=== PATIENT | male | born 1960 | race Caucasian/White ===

== ENCOUNTER 2016-05-29 01:00 | Emergency (ER) | payer OTHER ==
--- NOTE | 2016-05-29 01:26 | ED ---
Xavier Gomez Aidan, scribed for Dat Dooley MD on 05/29/16 at 0118 . Complex/Multi-Sys Presentation - HPI Summary HPI Summary: 55 y/o male presents to the ED with a complaint of acute, constant, moderate, worsening, left-sided chest pain and lower abdominal pain that began roughly a week ago. 6 months ago, he had a similar pain when he had low sodium levels. No associated symptoms or factors. 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 Feedback Onset/Duration: Sudden Onset, Lasting Days, Still Present Timing: Constant, Days Severity Currently: Moderate Severity Initially: Moderate Location: Pain At: - lower abdomen and left side of chest Character: Sharp Aggravating Factor(s): unknown Alleviating Factor(s): unknown Associated Signs And Symptoms: Positive: Chest Pain, Abdominal Pain Related History: Similar Episode/Diagnosed As: - similar pain 6 months ago dx as low sodium levels - Allergies/Home Medications Allergies/Adverse Reactions: Allergies Allergy/AdvReac Type Severity Reaction Status Date / Time Aspirin Allergy Unknown Verified 05/29/16 01:18 Reaction Details Penicillins [PCN] Allergy Unknown Verified 05/29/16 01:19 Reaction Details PMH/Surg Hx/FS Hx/Imm Hx Endocrine/Hematology History: Denies: Hx Diabetes Cardiovascular History: Reports: Hx Hypertension - W/MEDS History: Denies: Hx Renal Disease - Immunization History Date of Tetanus Vaccine: Unk Date of Influenza Vaccine: Fall 2014 - Family History Known Family History: Positive: Hypertension - Social History Occupation: Unemployed Lives: Alone Alcohol Use: Daily - see HPI Alcohol Amount: 1/2 to 3/4 case of beer daily Substance Use Type: Reports: None Hx Tobacco Use: Yes Smoking Status (MU): Current Every Day Smoker Type: Cigarettes Have You Smoked in the Last Year: Yes Review of Systems Constitutional: Negative Eyes: Negative ENT: Negative Positive: Chest Pain. Negative: Palpitations Respiratory: Negative Positive: Abdominal Pain. Negative: Vomiting, Diarrhea, Nausea Genitourinary: Negative Musculoskeletal: Negative Skin: Negative Neurological: Negative Psychological: Normal All Other Systems Reviewed And Are Negative: Yes Physical Exam Triage Information Reviewed: Yes Vital Signs On Initial Exam: Initial Vitals Temp Pulse Resp BP Pulse Ox 98.1 F 97 16 158/81 98 05/29/16 01:00 05/29/16 01:00 05/29/16 01:00 05/29/16 01:00 05/29/16 01:00 Vital Signs Reviewed: Yes Appearance: Positive: No Pain Distress, Obese Skin: Positive: Warm Head/Face: Positive: Normal Head/Face Inspection Eyes: Positive: SIDNEY ENT: Positive: Hearing grossly normal Neck: Positive: Supple Respiratory/Lung Sounds: Positive: Clear to Auscultation, Breath Sounds Present Cardiovascular: Positive: RRR Abdomen Description: Positive: Nontender, Soft Bowel Sounds: Positive: Present Musculoskeletal: Positive: Strength/ROM Intact Neurological: Positive: Sensory/Motor Intact Psychiatric: Positive: Affect/Mood Appropriate Diagnostics - Vital Signs Vital Signs Temp Pulse Resp BP Pulse Ox 05/29/16 01:10 98 99 05/29/16 01:08 141/85 05/29/16 01:00 98.1 F 97 16 158/81 98 - Laboratory Result Diagrams: 05/29/16 01:40 05/29/16 05:15 Lab Statement: Any lab studies that have been ordered have been reviewed, and results considered in the medical decision making process. - EKG EKG 0101 Cardiac Rate: NL - 97 BPM EKG Rhythm: Sinus Rhythm EKG Interpretation: NORMAL Re-Evaluation - Re-Evaluation First Eval Change: Improved Complex Multi-Symp Course/Dx - Diagnoses Provider Diagnoses: Hyponatremia, Chest pain Discharge - Discharge Plan Condition: Stable Disposition: HOME Discharge Disposition Comment: Please follow up with your primary care physician. Patient Education Materials: Hyponatremia (ED), Chest Pain (ED) Referrals: Isaac Richardson MD [Primary Care Provider] - The documentation as recorded by the Xavier weston Aidan accurately reflects the service I personally performed and the decisions made by me, Dat Dooley MD.
[2016-05-29 01:53] LABS: Hematocrit 49 % (42-52); Hemoglobin 16.5 g/dl (14.0-18.0); Mean Corpuscular HGB Conc 34 g/dl (31-36); Mean Corpuscular Hemoglobin 33 pg (27-31); Mean Corpuscular Volume 99 fL (80-94); Mean Platelet Volume 8 um3 (7.4-10.4); Red Blood Count 4.97 10^6/ul (4.0-5.4); Red Cell Distribution Width 14 % (10.5-15)
[2016-05-29 02:06] LABS: Albumin 4.2 g/dL (3.2-5.2); BUN/Creatinine Ratio 5.6 (8-20); C Reactive Protein 2.27 mg/L (< 5.00); EGFR African American 148.1 (>60); EGFR Non-African American 115.2 (>60); Globulin 3.2 g/dL (2-4); Magnesium 1.9 mg/dL (1.9-2.7); Total Bilirubin 0.5 mg/dL (0.2-1.0); Total Protein 7.4 g/dL (6.4-8.9)
[2016-05-29 02:07] LABS: Troponin I 0.01 ng/mL (<0.04)
[2016-05-29 02:09] LABS: Potassium 3.7 mmol/L (3.5-5.0)
[2016-05-29] MEDS ORDERED: NS 0.9% 1000 ML* 1,000 ML IV ONE (02:46)
[2016-05-29 06:04] VITALS: BP 132/69
[2016-05-29 06:13] LABS: Troponin I 0.01 ng/mL (<0.04)
[2016-05-29 06:16] LABS: BUN/Creatinine Ratio 6.8 (8-20); Calcium 8.7 mg/dL (8.6-10.3); EGFR African American 143.5 (>60); EGFR Non-African American 111.6 (>60); Potassium 4.5 mmol/L (3.5-5.0)
--- NOTE | 2016-05-29 08:06 | RAD ---
HISTORY: Chest pain COMPARISONS: June 03, 2015 VIEWS: 2: Frontal and lateral views of the chest. FINDINGS: CARDIOMEDIASTINAL SILHOUETTE: The cardiomediastinal silhouette is normal. JACK: The jack are normal. PLEURA: The costophrenic angles are sharp. No pleural abnormalities are noted. LUNG PARENCHYMA: The lungs are clear. ABDOMEN: The upper abdomen is clear. There is no subphrenic gas. BONES AND SOFT TISSUES: No bone or soft tissue abnormalities are noted. OTHER: None. IMPRESSION: NO ACTIVE CARDIOPULMONARY DISEASE.
== END 2016-05-29 06:30 | disposition home or self-care (01) ==
LOC: ED 01:00
DX: E87.1 Hypo-osmolality and hyponatremia (principal); R07.9 Chest pain, unspecified; F17.210 Nicotine dependence, cigarettes, uncomplicated; R10.32 Left lower quadrant pain
CPT/HCPCS: 36415; 71020; 80048; 80053; 83605; 83690; 83735; 84484; 85025; 86140; 93005; 99283

== ENCOUNTER 2019-10-05 14:14 | Inpatient (IN) ==
[2019-10-05] MEDS ORDERED: Thiamine 100 MG/ML 2 ml VIAL 100 MG, Folic Acid 1 MG, Multiple Vitamin IV ADULT 10 ML i... IV ONE (16:03)
[2019-10-05 16:49] LABS: Hematocrit 39 % (42-52); Hemoglobin 13.7 g/dL (14.0-18.0); Mean Corpuscular HGB Conc 35 g/dL (31-36); Mean Corpuscular Hemoglobin 35 pg (27-31); Mean Corpuscular Volume 99 fL (80-94); Red Blood Count 3.96 10^6 /uL (4.18-5.48); Red Cell Distribution Width 13 % (10-15); White Blood Count 6.6 10^3/uL (3.5-10.8)
[2019-10-05 16:59] LABS: Troponin I 0.01 ng/mL (<0.03)
[2019-10-05 17:07] LABS: Albumin 4.3 g/dL (3.2-5.2); CO2 Carbon Dioxide 22 mmol/L (22-32); Calcium 9.6 mg/dL (8.6-10.3); Chloride 75 mmol/L (101-111); Potassium 4.7 mmol/L (3.5-5.0)
[2019-10-05 17:13] LABS: ALT 23 U/L (7-52); AST 38 U/L (13-39); Albumin/Globulin Ratio 1.2 (1-3); Alkaline Phosphatase 68 U/L (34-104); Blood Urea Nitrogen 11 mg/dL (6-24); EGFR African American 102.2 (>60); EGFR Non-African American 84.5 (>60); Globulin 3.7 g/dL (2-4); Glucose 101 mg/dL (70-100)
[2019-10-05 17:25] LABS: ABS Lymphocytes 0.6 10^3/ul (1.0-4.8); ABS Monocytes 0.5 10^3/ul (0-0.8); Eosinophil % 0.6 %; Lymphocyte % 8.5 %; Platelet Count Platelets clumped. 10^3/uL (150-450)
[2019-10-05 17:26] LABS: Anion Gap 11 mmol/L (2-11); Sodium 108 mmol/L (135-145)
[2019-10-05 18:14] LABS: Alcohol, S < 10 mg/dL (<10)
[2019-10-05] MEDS ORDERED: Albuterol 2.5mg/3 ml (0.083%) NEB.SOLN INH PRN (18:30)
[2019-10-05] MEDS ORDERED: LORazepam 2 mg VIAL 1 ml IV PUSH SCH (19:00)
[2019-10-05] MEDS: Enoxaparin 40 MG/0.4 ML SYR(*) SUBCUT SCH (21:22)
[2019-10-06 05:16] LABS: Hematocrit 37 % (42-52); Hemoglobin 13.3 g/dL (14.0-18.0); Mean Corpuscular HGB Conc 36 g/dL (31-36); Mean Corpuscular Hemoglobin 35 pg (27-31); Mean Corpuscular Volume 98 fL (80-94); Mean Platelet Volume 7.4 fL (7.4-10.4); Platelet Count 310 10^3/uL (150-450); Red Blood Count 3.83 10^6 /uL (4.18-5.48); Red Cell Distribution Width 13 % (10-15); White Blood Count 5.1 10^3/uL (3.5-10.8)
[2019-10-06 05:32] LABS: BUN/Creatinine Ratio 11.1 (8-20); Calcium 9.4 mg/dL (8.6-10.3); EGFR African American 135.7 (>60); EGFR Non-African American 112.1 (>60); Potassium 3.7 mmol/L (3.5-5.0)
[2019-10-06 05:36] LABS: INR 1.04 (0.82-1.09)
[2019-10-06] MEDS: LORazepam 1 mg TAB (*) PO PRN (06:04)
[2019-10-06] MEDS: Nicotine PATCH 21 MG/24 HR PATCH TRANSDERM SCH (08:11)
[2019-10-06] MEDS: Multivitamins/Minerals TAB PO SCH (08:12)
[2019-10-06] MEDS: SPIRIVA Respimat (tiotropium) 2.5 mcg/inh Inhaler INH SCH (11:01)
[2019-10-06] MEDS ORDERED: Ondansetron 4 mg VIAL 2 MG/ML 2 ml VIAL ONE (13:12)
[2019-10-06] MEDS ORDERED: Ondansetron 4 mg VIAL 2 MG/ML 2 ml VIAL IV ONE (13:26)
[2019-10-06] MEDS: Enoxaparin 40 MG/0.4 ML SYR(*) SUBCUT SCH (20:14)
[2019-10-07 05:20] LABS: Hematocrit 37 % (42-52); Hemoglobin 13.5 g/dL (14.0-18.0); Mean Corpuscular HGB Conc 36 g/dL (31-36); Mean Corpuscular Hemoglobin 36 pg (27-31); Mean Corpuscular Volume 98 fL (80-94); Mean Platelet Volume 7.1 fL (7.4-10.4); Platelet Count 336 10^3/uL (150-450); Red Blood Count 3.81 10^6 /uL (4.18-5.48); Red Cell Distribution Width 13 % (10-15); White Blood Count 5.8 10^3/uL (3.5-10.8)
[2019-10-07 05:31] LABS: BUN/Creatinine Ratio 13.8 (8-20); Calcium 9.7 mg/dL (8.6-10.3); EGFR African American 84.1 (>60); EGFR Non-African American 69.5 (>60); Potassium 3.8 mmol/L (3.5-5.0)
[2019-10-07] MEDS: LORazepam 1 mg TAB (*) PO PRN ×2 (05:52→21:10)
[2019-10-07] MEDS ORDERED: Ondansetron 4 mg VIAL 2 MG/ML 2 ml VIAL IV ONE (09:04)
[2019-10-07] MEDS: Multivitamins/Minerals TAB PO SCH (10:41)
[2019-10-07] MEDS: Nicotine PATCH 21 MG/24 HR PATCH TRANSDERM SCH (10:45)
[2019-10-07] MEDS: SPIRIVA Respimat (tiotropium) 2.5 mcg/inh Inhaler INH SCH (17:43)
[2019-10-07] MEDS: Enoxaparin 40 MG/0.4 ML SYR(*) SUBCUT SCH (21:07)
[2019-10-07] MEDS ORDERED: Ondansetron 4 mg VIAL 2 MG/ML 2 ml VIAL IV PRN (22:44)
[2019-10-08 05:11] LABS: ABS Basophils 0.1 10^3/ul (0-0.2); ABS Eosinophils 0.1 10^3/ul (0-0.6); ABS Lymphocytes 1.5 10^3/ul (1.0-4.8); ABS Monocytes 0.7 10^3/ul (0-0.8); Eosinophil % 1.6 %; Hematocrit 35 % (42-52); Hemoglobin 12.3 g/dL (14.0-18.0); Lymphocyte % 22.6 %; Mean Corpuscular HGB Conc 35 g/dL (31-36); Mean Corpuscular Hemoglobin 35 pg (27-31); Mean Corpuscular Volume 99 fL (80-94); Mean Platelet Volume 7.1 fL (7.4-10.4); Nucleated Red Blood Cells % 0.1; Platelet Count 328 10^3/uL (150-450); Red Blood Count 3.55 10^6 /uL (4.18-5.48); Red Cell Distribution Width 13 % (10-15); White Blood Count 6.7 10^3/uL (3.5-10.8)
[2019-10-08 05:26] LABS: BUN/Creatinine Ratio 21.3 (8-20); Calcium 9.3 mg/dL (8.6-10.3); EGFR African American 99.7 (>60); EGFR Non-African American 82.4 (>60); Potassium 4.1 mmol/L (3.5-5.0)
[2019-10-08] MEDS: Multivitamins/Minerals TAB PO SCH (07:35)
[2019-10-08] MEDS: Nicotine PATCH 21 MG/24 HR PATCH TRANSDERM SCH (07:35)
[2019-10-08] MEDS: SPIRIVA Respimat (tiotropium) 2.5 mcg/inh Inhaler INH SCH (10:11)
[2019-10-08] MEDS: Enoxaparin 40 MG/0.4 ML SYR(*) SUBCUT SCH (19:16)
[2019-10-08 19:37] LABS: TSH (Thyroid Stimulating Horm) 3.42 mcIU/mL (0.34-5.60)
[2019-10-08] MEDS: LORazepam 1 mg TAB (*) PO PRN (21:06)
[2019-10-09 06:05] LABS: ABS Basophils 0.1 10^3/ul (0-0.2); ABS Eosinophils 0.2 10^3/ul (0-0.6); ABS Lymphocytes 1.4 10^3/ul (1.0-4.8); ABS Monocytes 0.7 10^3/ul (0-0.8); Eosinophil % 2.3 %; Hematocrit 35 % (42-52); Hemoglobin 12.4 g/dL (14.0-18.0); Lymphocyte % 20.4 %; Mean Corpuscular HGB Conc 35 g/dL (31-36); Mean Corpuscular Hemoglobin 35 pg (27-31); Mean Corpuscular Volume 98 fL (80-94); Mean Platelet Volume 6.8 fL (7.4-10.4); Platelet Count 328 10^3/uL (150-450); Red Blood Count 3.57 10^6 /uL (4.18-5.48); Red Cell Distribution Width 13 % (10-15); White Blood Count 6.9 10^3/uL (3.5-10.8)
[2019-10-09 06:33] LABS: Calcium 9.2 mg/dL (8.6-10.3); Magnesium 1.8 mg/dL (1.9-2.7); Potassium 4.5 mmol/L (3.5-5.0)
[2019-10-09 06:39] LABS: BUN/Creatinine Ratio 18.2 (8-20); EGFR African American 107.6 (>60); EGFR Non-African American 88.9 (>60)
[2019-10-09] MEDS: Multivitamins/Minerals TAB PO SCH (07:20)
[2019-10-09] MEDS: Nicotine PATCH 21 MG/24 HR PATCH TRANSDERM SCH (07:21)
[2019-10-09] MEDS ORDERED: Magnesium Sulfate 2 gm BAG 2 GM/50 ML BAG IVPB ONE (08:42)
[2019-10-09 09:58] LABS: Folate 12.95 ng/mL (>3.99)
[2019-10-09] MEDS: SPIRIVA Respimat (tiotropium) 2.5 mcg/inh Inhaler INH SCH (10:52)
[2019-10-09 11:31] VITALS: BP 137/80
[2019-10-09] MEDS ORDERED: SPIRIVA Respimat (tiotropium) 2.5 mcg/inh Inhaler INH SCH (12:26)
== END 2019-10-09 12:55 | disposition home or self-care (01) | DRG 425 ==
LOC: ED 14:14 → ICU 18:18 → MEDTELE 10-06 14:04
PROVIDERS: ADMIT Internal Medicine Critical Care Medicine; ATTEND Internal Medicine

== ENCOUNTER 2019-10-13 15:36 | Inpatient (IN) ==
[2019-10-13] MEDS ORDERED: NS 0.9% 1000 ml BAG 1,000 ML IV ONE ×2 (16:02→22:15)
[2019-10-13 17:05] LABS: ABS Lymphocytes 0.9 10^3/ul (1.0-4.8); ABS Monocytes 1.5 10^3/ul (0-0.8); Eosinophil % 0.3 %; Hematocrit 37 % (42-52); Hemoglobin 12.9 g/dL (14.0-18.0); Lymphocyte % 5.9 %; Mean Corpuscular HGB Conc 35 g/dL (31-36); Mean Corpuscular Hemoglobin 34 pg (27-31); Mean Corpuscular Volume 98 fL (80-94); Mean Platelet Volume 6.8 fL (7.4-10.4); Platelet Count 339 10^3/uL (150-450); Red Blood Count 3.78 10^6 /uL (4.18-5.48); Red Cell Distribution Width 13 % (10-15); White Blood Count 15.2 10^3/uL (3.5-10.8)
[2019-10-13 17:21] LABS: ALT 26 U/L (7-52); AST 24 U/L (13-39); Albumin 4.1 g/dL (3.2-5.2); Albumin/Globulin Ratio 1.1 (1-3); Alkaline Phosphatase 78 U/L (34-104); Blood Urea Nitrogen 12 mg/dL (6-24); CO2 Carbon Dioxide 22 mmol/L (22-32); Calcium 9.2 mg/dL (8.6-10.3); Chloride 83 mmol/L (101-111); EGFR African American 120.1 (>60); EGFR Non-African American 99.3 (>60); Globulin 3.6 g/dL (2-4); Glucose 115 mg/dL (70-100); Magnesium 1.8 mg/dL (1.9-2.7); Phosphorus 3.6 mg/dL (2.5-5.0); Potassium 4.5 mmol/L (3.5-5.0); Total Protein 7.7 g/dL (6.4-8.9)
[2019-10-13 17:23] LABS: Anion Gap 9 mmol/L (2-11); Sodium 114 mmol/L (135-145)
[2019-10-13 17:46] LABS: Alcohol, S < 10 mg/dL (<10)
[2019-10-13 18:12] LABS: Troponin I 0.01 ng/mL (<0.03)
[2019-10-13] MEDS ORDERED: Albuterol/Ipratropium NEB.SOL (2.5/0.5 MG) 3 ML NEB.SOLN INH PRN (18:24)
[2019-10-13 18:29] LABS: Urine Appearance Cloudy; Urine Bilirubin Negative (Negative); Urine Blood Negative (Negative); Urine Color Amber; Urine Glucose 1+(50 mg/dL) (Negative); Urine Ketones Negative (Negative); Urine Nitrite Negative (Negative); Urine Protein 1+(30 mg/dL) (Negative); Urine Specific Gravity 1.024 (1.010-1.030); Urine Urobilinogen Positive (Negative)
[2019-10-13] MEDS ORDERED: HYDROcodone/ACETAMIN 5/325 mg TAB PO PRN (18:33)
[2019-10-13 18:47] LABS: Urine Bacteria Absent (Absent); Urine Red Blood Cell 1+(3-5/hpf) (Absent); Urine Squamous Epithelial Cell Present (Absent); Urine White Blood Cell Trace(0-5/hpf) (Absent)
[2019-10-13] MEDS ORDERED: Magnesium Sulfate 2 gm BAG 2 GM/50 ML BAG IVPB ONE (18:48)
[2019-10-13] MEDS: Nicotine PATCH 21 MG/24 HR PATCH TRANSDERM SCH (19:00)
[2019-10-13] MEDS ORDERED: Thiamine 100 MG/ML 2 ml VIAL (200 mg) IM ONE (19:09)
[2019-10-13] MEDS: Enoxaparin 40 MG/0.4 ML SYR(*) SUBCUT SCH (22:08)
[2019-10-14 04:44] LABS: ABS Basophils 0.1 10^3/ul (0-0.2); Eosinophil % 0.4 %; Hematocrit 35 % (42-52); Hemoglobin 12.5 g/dL (14.0-18.0); Lymphocyte % 11.1 %; Mean Corpuscular HGB Conc 36 g/dL (31-36); Mean Corpuscular Hemoglobin 35 pg (27-31); Mean Corpuscular Volume 98 fL (80-94); Mean Platelet Volume 6.7 fL (7.4-10.4); Platelet Count 299 10^3/uL (150-450); Red Blood Count 3.62 10^6 /uL (4.18-5.48); Red Cell Distribution Width 13 % (10-15); White Blood Count 9.4 10^3/uL (3.5-10.8)
[2019-10-14 04:59] LABS: Calcium 8.8 mg/dL (8.6-10.3); EGFR African American 142.5 (>60); EGFR Non-African American 117.8 (>60); Magnesium 2.3 mg/dL (1.9-2.7); Potassium 4.4 mmol/L (3.5-5.0)
[2019-10-14] MEDS: SPIRIVA Respimat (tiotropium) 2.5 mcg/inh Inhaler INH SCH (07:59)
[2019-10-14] MEDS: Multivitamins/Minerals TAB PO SCH (08:45)
[2019-10-14] MEDS: Nicotine PATCH 21 MG/24 HR PATCH TRANSDERM SCH (08:45)
[2019-10-14] MEDS: Enoxaparin 40 MG/0.4 ML SYR(*) SUBCUT SCH (20:03)
[2019-10-15 06:12] LABS: BUN/Creatinine Ratio 14.6 (8-20); EGFR African American 116.8 (>60); EGFR Non-African American 96.5 (>60); Magnesium 2.1 mg/dL (1.9-2.7); Potassium 4.3 mmol/L (3.5-5.0)
[2019-10-15] MEDS: Nicotine PATCH 21 MG/24 HR PATCH TRANSDERM SCH (08:09)
[2019-10-15] MEDS: Multivitamins/Minerals TAB PO SCH (08:09)
[2019-10-15] MEDS: SPIRIVA Respimat (tiotropium) 2.5 mcg/inh Inhaler INH SCH (08:19)
[2019-10-15] MEDS: Enoxaparin 40 MG/0.4 ML SYR(*) SUBCUT SCH (18:29)
[2019-10-15] MEDS: LORazepam 1 mg TAB (*) PO SCH (23:46)
[2019-10-16] MEDS: SPIRIVA Respimat (tiotropium) 2.5 mcg/inh Inhaler INH SCH (08:08)
[2019-10-16] MEDS: Nicotine PATCH 21 MG/24 HR PATCH TRANSDERM SCH (08:09)
[2019-10-16] MEDS: Multivitamins/Minerals TAB PO SCH (08:10)
[2019-10-16 10:16] LABS: BUN/Creatinine Ratio 12.8 (8-20); Calcium 9.5 mg/dL (8.6-10.3); EGFR African American 123.7 (>60); EGFR Non-African American 102.2 (>60); Potassium 4.3 mmol/L (3.5-5.0)
[2019-10-16] MEDS: Lidocaine PATCH 5% PATCH TRANSDERM SCH (17:35)
[2019-10-16] MEDS: Enoxaparin 40 MG/0.4 ML SYR(*) SUBCUT SCH (18:14)
[2019-10-16] MEDS: LORazepam 1 mg TAB (*) PO SCH (20:19)
[2019-10-16] MEDS: Lidocaine Patch REMOVE PATCH PATCH OFF SCH (20:21)
[2019-10-17] MEDS: LORazepam 1 mg TAB (*) PO SCH (00:05)
[2019-10-17] MEDS: Lidocaine PATCH 5% PATCH TRANSDERM SCH (07:45)
[2019-10-17] MEDS: Multivitamins/Minerals TAB PO SCH (08:02)
[2019-10-17] MEDS: Nicotine PATCH 21 MG/24 HR PATCH TRANSDERM SCH (08:03)
[2019-10-17] MEDS: SPIRIVA Respimat (tiotropium) 2.5 mcg/inh Inhaler INH SCH (13:28)
[2019-10-17] MEDS: Enoxaparin 40 MG/0.4 ML SYR(*) SUBCUT SCH (18:10)
[2019-10-17] MEDS: Lidocaine Patch REMOVE PATCH PATCH OFF SCH (21:02)
[2019-10-18] MEDS: Lidocaine PATCH 5% PATCH TRANSDERM SCH (07:55)
[2019-10-18] MEDS: Nicotine PATCH 21 MG/24 HR PATCH TRANSDERM SCH (08:07)
[2019-10-18] MEDS: Multivitamins/Minerals TAB PO SCH (08:09)
[2019-10-18] MEDS: SPIRIVA Respimat (tiotropium) 2.5 mcg/inh Inhaler INH SCH (08:59)
[2019-10-18] MEDS: LORazepam 1 mg TAB (*) PO SCH (15:21)
[2019-10-18] MEDS: Enoxaparin 40 MG/0.4 ML SYR(*) SUBCUT SCH (20:46)
[2019-10-18] MEDS: Lidocaine Patch REMOVE PATCH PATCH OFF SCH (20:47)
[2019-10-19 05:43] LABS: BUN/Creatinine Ratio 16.5 (8-20); Calcium 8.8 mg/dL (8.6-10.3); EGFR African American 121.9 (>60); EGFR Non-African American 100.7 (>60); Potassium 4.2 mmol/L (3.5-5.0)
[2019-10-19] MEDS: Multivitamins/Minerals TAB PO SCH (07:48)
[2019-10-19] MEDS: Nicotine PATCH 21 MG/24 HR PATCH TRANSDERM SCH (07:50)
[2019-10-19] MEDS: Lidocaine PATCH 5% PATCH TRANSDERM SCH (07:56)
[2019-10-19] MEDS: SPIRIVA Respimat (tiotropium) 2.5 mcg/inh Inhaler INH SCH (12:46)
[2019-10-19] MEDS: Lidocaine Patch REMOVE PATCH PATCH OFF SCH (20:27)
[2019-10-19] MEDS: Enoxaparin 40 MG/0.4 ML SYR(*) SUBCUT SCH (20:41)
[2019-10-20] MEDS: Lidocaine PATCH 5% PATCH TRANSDERM SCH (08:35)
[2019-10-20] MEDS: Nicotine PATCH 21 MG/24 HR PATCH TRANSDERM SCH (08:35)
[2019-10-20] MEDS: Multivitamins/Minerals TAB PO SCH (08:36)
[2019-10-20] MEDS: SPIRIVA Respimat (tiotropium) 2.5 mcg/inh Inhaler INH SCH (13:36)
[2019-10-20] MEDS: Lidocaine Patch REMOVE PATCH PATCH OFF SCH (21:27)
[2019-10-20] MEDS: Enoxaparin 40 MG/0.4 ML SYR(*) SUBCUT SCH (21:34)
[2019-10-21] MEDS: SPIRIVA Respimat (tiotropium) 2.5 mcg/inh Inhaler INH SCH (08:08)
[2019-10-21] MEDS: Multivitamins/Minerals TAB PO SCH (08:45)
[2019-10-21] MEDS: Nicotine PATCH 21 MG/24 HR PATCH TRANSDERM SCH (08:45)
[2019-10-21] MEDS: Lidocaine PATCH 5% PATCH TRANSDERM SCH (08:55)
[2019-10-21 10:04] LABS: BUN/Creatinine Ratio 16.4 (8-20); Calcium 9.5 mg/dL (8.6-10.3); EGFR African American 147.4 (>60); EGFR Non-African American 121.8 (>60); Potassium 4.1 mmol/L (3.5-5.0)
[2019-10-21] MEDS: Lidocaine Patch REMOVE PATCH PATCH OFF SCH (20:40)
[2019-10-21] MEDS: Enoxaparin 40 MG/0.4 ML SYR(*) SUBCUT SCH (20:40)
[2019-10-22] MEDS: Nicotine PATCH 21 MG/24 HR PATCH TRANSDERM SCH (07:58)
[2019-10-22] MEDS: Multivitamins/Minerals TAB PO SCH (07:58)
[2019-10-22] MEDS: Lidocaine PATCH 5% PATCH TRANSDERM SCH (07:58)
[2019-10-22] MEDS: SPIRIVA Respimat (tiotropium) 2.5 mcg/inh Inhaler INH SCH (08:05)
[2019-10-22 08:37] VITALS: BP 129/83
== END 2019-10-22 09:35 | DRG 425 ==
LOC: ED 15:36 → ICU 18:24 → MEDTELE 10-14 09:21 → MED 10-19 01:38
PROVIDERS: ADMIT Nurse Practitioner Family; ATTEND Internal Medicine

== ENCOUNTER 2020-11-20 07:28 | Inpatient (IN) ==
[2020-11-20] MEDS ORDERED: Clindamycin 600 MG/D5W BAG 600 MG/50 ML BAG IV ONE (08:14)
[2020-11-20] MEDS ORDERED: Ciprofloxacin 400mg IVPREMIX 400 MG/200 ML BAG IVPB ONE (08:17)
[2020-11-20 08:19] LABS: Urine Appearance Clear; Urine Bilirubin Negative (Negative); Urine Blood Negative (Negative); Urine Color Yellow; Urine Glucose Negative (Negative); Urine Ketones Negative (Negative); Urine Nitrite Negative (Negative); Urine Protein Negative (Negative); Urine Specific Gravity 1.006 (1.002-1.030); Urine Urobilinogen Negative (Negative)
[2020-11-20] MEDS ORDERED: Tetan/Diph/Pertus SYR(Tdap) 0.5 ML SYR(BOOSTRIX) use SYR contains LATEX IM ONE (08:19)
[2020-11-20 08:43] LABS: ABS Basophils 0.1 10^3/ul (0-0.2); ABS Eosinophils 0.1 10^3/ul (0-0.6); ABS Lymphocytes 1.2 10^3/ul (1.0-4.8); ABS Monocytes 0.9 10^3/ul (0-0.8); ABS Neutrophils 8.7 10^3/ul (1.5-7.7); Eosinophil % 0.6 %; Hematocrit 41 % (42-52); Hemoglobin 14.5 g/dL (14.0-18.0); Lymphocyte % 11.3 %; Mean Corpuscular HGB Conc 35 g/dL (31-36); Mean Corpuscular Hemoglobin 35 pg (27-31); Mean Corpuscular Volume 100 fL (80-94); Mean Platelet Volume 7.3 fL (7.4-10.4); Platelet Count 222 10^3/uL (150-450); Red Cell Distribution Width 13 % (10-15)
[2020-11-20] MEDS ORDERED: Nicotine PATCH 14 MG/24 HR PATCH TRANSDERM ONE (08:56)
[2020-11-20 09:01] LABS: ALT 11 U/L (7-52); AST 25 U/L (13-39); Albumin 4.1 g/dL (3.2-5.2); Albumin/Globulin Ratio 1.2 (1-3); Alkaline Phosphatase 54 U/L (35-149); Anion Gap 8 mmol/L (2-11); Blood Urea Nitrogen 6 mg/dL (6-24); C Reactive Protein 27.47 mg/L (<8.01); CO2 Carbon Dioxide 23 mmol/L (22-32); Calcium 9.1 mg/dL (8.6-10.3); Chloride 96 mmol/L (101-111); EGFR African American 173.5 (>60); EGFR Non-African American 143.4 (>60); Globulin 3.4 g/dL (2-4); Glucose 102 mg/dL (70-100); Sodium 127 mmol/L (135-145); Total Protein 7.5 g/dL (6.4-8.9)
[2020-11-20] MEDS ORDERED: Thiamine 100 MG/ML 2 ml VIAL 100 MG, Folic Acid IV 1 MG, Multiple Vitamin IV ADULT 10 M... IV ONE (12:30)
[2020-11-20] MEDS ORDERED: Lidocaine 1% VIAL 10 MG/ML VIAL INJ ONE (12:30)
[2020-11-20] MEDS ORDERED: NS 0.9% 1000 ml BAG 1,000 ML ONE (12:38)
[2020-11-20] MEDS ORDERED: Thiamine 100 MG/ML 2 ml VIAL (200 mg) ONE (12:38)
[2020-11-20] MEDS ORDERED: Albuterol HFA INHALER 8 gm MDI INH PRN (14:46)
[2020-11-20 16:19] LABS: Alcohol, S < 13 mg/dL (<10)
[2020-11-20] MEDS: HYDROcodone/ACETAMIN 5/325 mg TAB PO PRN (17:09)
[2020-11-20] MEDS ORDERED: NS 0.9% 1000 ml BAG 1,000 ML IV SCH (18:45)
[2020-11-20] MEDS: Clindamycin 600 MG/D5W BAG 600 MG/50 ML BAG IV SCH (20:10)
[2020-11-20] MEDS ORDERED: Ciprofloxacin 400mg IVPREMIX 400 MG/200 ML BAG IVPB SCH (21:00)
[2020-11-20] MEDS: Levofloxacin 750 MG IVPREMIX 750 MG/150 ML BAG IVPB SCH (21:58)
[2020-11-20] MEDS: Heparin 5000 UNITS/ML 1 mL VIAL SUBCUT SCH (22:01)
[2020-11-21] MEDS: Clindamycin 600 MG/D5W BAG 600 MG/50 ML BAG IV SCH ×3 (02:58→16:56)
[2020-11-21 06:15] LABS: ABS Basophils 0.1 10^3/ul (0-0.2); ABS Eosinophils 0.3 10^3/ul (0-0.6); ABS Lymphocytes 1.4 10^3/ul (1.0-4.8); ABS Monocytes 0.8 10^3/ul (0-0.8); ABS Neutrophils 5.8 10^3/ul (1.5-7.7); Hematocrit 42 % (42-52); Hemoglobin 14.5 g/dL (14.0-18.0); Lymphocyte % 16.5 %; Mean Corpuscular HGB Conc 35 g/dL (31-36); Mean Corpuscular Hemoglobin 36 pg (27-31); Mean Corpuscular Volume 103 fL (80-94); Mean Platelet Volume 7.6 fL (7.4-10.4); Nucleated Red Blood Cells % 0.1; Platelet Count 197 10^3/uL (150-450); Red Blood Count 4.07 10^6 /uL (4.18-5.48); Red Cell Distribution Width 13 % (10-15); White Blood Count 8.3 10^3/uL (3.5-10.8)
[2020-11-21] MEDS: Heparin 5000 UNITS/ML 1 mL VIAL SUBCUT SCH ×3 (06:16→21:33)
[2020-11-21] MEDS: Nicotine PATCH 21 MG/24 HR PATCH TRANSDERM SCH (06:17)
[2020-11-21] MEDS: Nicotine PATCH 7 MG/24 HR PATCH TRANSDERM SCH ×2 (06:31→09:26)
[2020-11-21 06:37] LABS: Calcium 8.4 mg/dL (8.6-10.3); EGFR African American 149.5 (>60); EGFR Non-African American 123.5 (>60); Magnesium 1.8 mg/dL (1.9-2.7); Potassium 4.3 mmol/L (3.5-5.0)
[2020-11-21] MEDS ORDERED: Nicotine PATCH 21 MG/24 HR PATCH TRANSDERM SCH (08:00)
[2020-11-21] MEDS ORDERED: SPIRIVA Respimat (tiotropium) 2.5 mcg/inh Inhaler INH SCH (09:00)
[2020-11-21] MEDS: Levofloxacin 750 MG IVPREMIX 750 MG/150 ML BAG IVPB SCH (19:42)
[2020-11-22] MEDS: Clindamycin 600 MG/D5W BAG 600 MG/50 ML BAG IV SCH ×3 (01:02→17:19)
[2020-11-22] MEDS: Heparin 5000 UNITS/ML 1 mL VIAL SUBCUT SCH ×3 (06:09→21:45)
[2020-11-22] MEDS: Nicotine PATCH 21 MG/24 HR PATCH TRANSDERM SCH (06:12)
[2020-11-22] MEDS: Nicotine PATCH 7 MG/24 HR PATCH TRANSDERM SCH ×2 (06:12→10:25)
[2020-11-22 07:08] LABS: ABS Basophils 0.1 10^3/ul (0-0.2); ABS Eosinophils 0.3 10^3/ul (0-0.6); ABS Lymphocytes 1.3 10^3/ul (1.0-4.8); ABS Monocytes 0.7 10^3/ul (0-0.8); ABS Neutrophils 5.8 10^3/ul (1.5-7.7); Eosinophil % 3.3 %; Hematocrit 44 % (42-52); Hemoglobin 15.4 g/dL (14.0-18.0); Lymphocyte % 15.9 %; Mean Corpuscular HGB Conc 35 g/dL (31-36); Mean Corpuscular Hemoglobin 36 pg (27-31); Mean Corpuscular Volume 102 fL (80-94); Mean Platelet Volume 7.5 fL (7.4-10.4); Platelet Count 229 10^3/uL (150-450); Red Blood Count 4.33 10^6 /uL (4.18-5.48); Red Cell Distribution Width 13 % (10-15); White Blood Count 8.1 10^3/uL (3.5-10.8)
[2020-11-22 07:19] LABS: Calcium 9.1 mg/dL (8.6-10.3); EGFR African American 116.4 (>60); EGFR Non-African American 96.2 (>60); Potassium 4.2 mmol/L (3.5-5.0)
[2020-11-22] MEDS: SPIRIVA Respimat (tiotropium) 2.5 mcg/inh Inhaler INH SCH (09:16)
[2020-11-22] MEDS: HYDROcodone/ACETAMIN 5/325 mg TAB PO PRN (09:47)
[2020-11-22 10:17] LABS: Magnesium 1.9 mg/dL (1.9-2.7)
[2020-11-22] MEDS: Levofloxacin 750 MG IVPREMIX 750 MG/150 ML BAG IVPB SCH (20:54)
[2020-11-23] MEDS: Clindamycin 600 MG/D5W BAG 600 MG/50 ML BAG IV SCH ×3 (00:31→17:12)
[2020-11-23 05:34] LABS: ABS Basophils 0.1 10^3/ul (0-0.2); ABS Eosinophils 0.3 10^3/ul (0-0.6); ABS Lymphocytes 1.3 10^3/ul (1.0-4.8); ABS Monocytes 0.7 10^3/ul (0-0.8); ABS Neutrophils 4.5 10^3/ul (1.5-7.7); Hematocrit 43 % (42-52); Mean Corpuscular HGB Conc 35 g/dL (31-36); Mean Corpuscular Hemoglobin 36 pg (27-31); Mean Corpuscular Volume 102 fL (80-94); Mean Platelet Volume 7.7 fL (7.4-10.4); Nucleated Red Blood Cells % 0.1; Platelet Count 229 10^3/uL (150-450); Red Blood Count 4.23 10^6 /uL (4.18-5.48); Red Cell Distribution Width 13 % (10-15); White Blood Count 6.9 10^3/uL (3.5-10.8)
[2020-11-23] MEDS: Heparin 5000 UNITS/ML 1 mL VIAL SUBCUT SCH ×3 (05:38→22:13)
[2020-11-23 06:00] LABS: EGFR Non-African American 97.5 (>60); Potassium 4.3 mmol/L (3.5-5.0)
[2020-11-23] MEDS: HYDROcodone/ACETAMIN 5/325 mg TAB PO PRN (07:33)
[2020-11-23] MEDS: Nicotine PATCH 7 MG/24 HR PATCH TRANSDERM SCH (07:37)
[2020-11-23] MEDS: Nicotine PATCH 21 MG/24 HR PATCH TRANSDERM SCH (07:37)
[2020-11-23] MEDS: SPIRIVA Respimat (tiotropium) 2.5 mcg/inh Inhaler INH SCH (08:25)
[2020-11-23] MEDS: Levofloxacin 750 MG IVPREMIX 750 MG/150 ML BAG IVPB SCH (20:23)
[2020-11-24] MEDS: Clindamycin 600 MG/D5W BAG 600 MG/50 ML BAG IV SCH ×2 (00:55→09:12)
[2020-11-24] MEDS: Heparin 5000 UNITS/ML 1 mL VIAL SUBCUT SCH ×2 (05:47→14:53)
[2020-11-24] MEDS: Nicotine PATCH 21 MG/24 HR PATCH TRANSDERM SCH (06:02)
[2020-11-24] MEDS: Nicotine PATCH 7 MG/24 HR PATCH TRANSDERM SCH (06:02)
[2020-11-24 09:21] LABS: Potassium 4.5 mmol/L (3.5-5.0)
[2020-11-24 12:59] VITALS: BP 120/81
[2020-11-24 15:21] LABS: C Reactive Protein 4.26 mg/L (<8.01)
== END 2020-11-24 14:57 | disposition home or self-care (01) | DRG 383 ==
LOC: ED 07:28 → MEDTELE 09:16 → SUATTDRO 11:53 → MEDTELE 11:53 → MCHPEDS 11-23 19:36
PROVIDERS: ADMIT Hospitalist; ATTEND Internal Medicine

== ENCOUNTER 2022-03-22 10:35 | Observation (INO) ==
[2022-03-22 11:46] LABS: Hematocrit 25 % (42-52); Hemoglobin 7.4 g/dL (14.0-18.0); Mean Corpuscular HGB Conc 29 g/dL (31-36); Mean Corpuscular Hemoglobin 19 pg (27-31); Mean Corpuscular Volume 65 fL (80-94); Mean Platelet Volume 6.9 fL (7.4-10.4); Platelet Count 344 10^3/uL (150-450); Red Blood Count 3.89 10^6 /uL (4.18-5.48); Red Cell Distribution Width 20 % (10-15); White Blood Count 6.9 10^3/uL (3.5-10.8)
[2022-03-22 12:20] LABS: Anion Gap 9 mmol/L (2-11); CO2 Carbon Dioxide 27 mmol/L (22-32); Chloride 93 mmol/L (101-111); Magnesium 1.5 mg/dL (1.9-2.7); Potassium 4.6 mmol/L (3.5-5.0); Sodium 129 mmol/L (135-145)
[2022-03-22 12:26] LABS: ALT 4 U/L (7-52); AST 16 U/L (13-39); Albumin/Globulin Ratio 0.9 (1-3); Alkaline Phosphatase 45 U/L (35-149); Blood Urea Nitrogen 9 mg/dL (6-24); C Reactive Protein 2.09 mg/L (<8.01); Globulin 4.5 g/dL (2-4); Glucose 86 mg/dL (70-100); Lipase 20 U/L (11.0-82.0); Phosphorus 3.5 mg/dL (2.5-5.0); Total Protein 8.5 g/dL (6.4-8.9); eGFR CKD-EPI 100.7 (>60)
[2022-03-22 12:27] LABS: Anisocytosis 2+; Hypochromasia 3+; Microcytosis 3+
[2022-03-22 12:34] LABS: ABS Basophils 0.1 10^3/ul (0-0.2); ABS Eosinophils 0.2 10^3/ul (0-0.6); ABS Lymphocytes 0.9 10^3/ul (1.0-4.8); ABS Monocytes 0.6 10^3/ul (0-0.8); ABS Neutrophils 5.1 10^3/ul (1.5-7.7); Eosinophil % 2.7 %
[2022-03-22] MEDS ORDERED: Pantoprazole VIAL 40 MG VIAL IV ONE ×2 (14:08→16:36)
[2022-03-22] MEDS ORDERED: Iohexol 350 (CONTRAST) 500 ML MDV IV ONE (14:14)
[2022-03-22] MEDS ORDERED: Magnesium Sulfate 2 gm BAG 2 GM/50 ML BAG IVPB ONE (15:14)
[2022-03-22 15:17] LABS: Alcohol, S < 13 mg/dL (<13); Total Iron Binding Capacity 473 mcg/dL (250-450); Transferrin 338 mg/dL (203-362)
[2022-03-22 15:18] LABS: % Iron Saturation 4 % (15-55); Iron < 20 ug/dL (50-212); Unsaturated Iron Binding 453 ug/dL
[2022-03-22] MEDS ORDERED: LORazepam 2 mg VIAL 1 ml IV PUSH PRN (16:48)
[2022-03-22] MEDS ORDERED: Lorazepam PYXIS KEY PRN (16:48)
[2022-03-22] MEDS ORDERED: NS 0.9% 1000 ml BAG 1,000 ML IV SCH (17:30)
[2022-03-22] MEDS ORDERED: Iron Sucrose 20 MG/ML 5 ML VIAL IV PUSH SCH (18:00)
[2022-03-22] MEDS: Thiamine 100 MG/ML 2 ml VIAL 100 MG in NS 0.9% 50 ML 50 ML IV SCH (18:50)
[2022-03-22] MEDS ORDERED: Permethrin 1% LOTION 59 ML BTL TOPICAL ONE (19:38)
[2022-03-22] MEDS: Iron Sucrose 200 MG in NS 0.9% 100 ml IVPB SCH (20:31)
[2022-03-22] MEDS ORDERED: Acetaminophen IV 1 GM/100ML 1,000 MG/100 ML BAG IV ONE (22:30)
[2022-03-23 00:04] LABS: ABS Basophils 0.1 10^3/ul (0-0.2); ABS Eosinophils 0.3 10^3/ul (0-0.6); ABS Lymphocytes 0.9 10^3/ul (1.0-4.8); ABS Monocytes 0.7 10^3/ul (0-0.8); ABS Neutrophils 5.3 10^3/ul (1.5-7.7); Eosinophil % 4.7 %; Hematocrit 24 % (42-52); Lymphocyte % 12.6 %; Mean Corpuscular HGB Conc 30 g/dL (31-36); Mean Corpuscular Hemoglobin 19 pg (27-31); Mean Corpuscular Volume 65 fL (80-94); Mean Platelet Volume 6.6 fL (7.4-10.4); Platelet Count 315 10^3/uL (150-450); Red Blood Count 3.63 10^6 /uL (4.18-5.48); Red Cell Distribution Width 20 % (10-15); White Blood Count 7.3 10^3/uL (3.5-10.8)
[2022-03-23] MEDS ORDERED: Pantoprazole VIAL 40 MG VIAL IV SCH (05:00)
[2022-03-23] MEDS: Nicotine PATCH 21 MG/24 HR PATCH TRANSDERM SCH ×2 (05:15→09:03)
[2022-03-23] MEDS: Pantoprazole VIAL 40 MG VIAL IV SCH ×2 (05:17→17:56)
[2022-03-23 06:40] LABS: Immature Retic Fraction 0.45; RBC Retic Count 3.68 10^6/uL (4.18-5.48); Red Blood Count 3.68 10^6 /uL (4.18-5.48)
[2022-03-23 06:53] LABS: INR 1.03 (0.89-1.11)
[2022-03-23 06:56] LABS: ABS Basophils 0.1 10^3/ul (0-0.2); ABS Eosinophils 0.3 10^3/ul (0-0.6); ABS Lymphocytes 0.9 10^3/ul (1.0-4.8); ABS Monocytes 0.5 10^3/ul (0-0.8); ABS Neutrophils 3.1 10^3/ul (1.5-7.7); Eosinophil % 6.6 %; Hematocrit 24 % (42-52); Hematocrit for Retic CNT 24 % (42-52); Hemoglobin 7.2 g/dL (14.0-18.0); Mean Corpuscular HGB Conc 30 g/dL (31-36); Mean Corpuscular Hemoglobin 20 pg (27-31); Mean Corpuscular Volume 65 fL (80-94); Mean Platelet Volume 7.2 fL (7.4-10.4); Platelet Count 312 10^3/uL (150-450); Red Cell Distribution Width 20 % (10-15); White Blood Count 4.8 10^3/uL (3.5-10.8)
[2022-03-23 07:06] LABS: Albumin 3.5 g/dL (3.2-5.2); Albumin/Globulin Ratio 0.9 (1-3); Calcium 8.6 mg/dL (8.6-10.3); Globulin 3.9 g/dL (2-4); Potassium 4.4 mmol/L (3.5-5.0); Total Bilirubin 0.3 mg/dL (0.2-1.0); Total Protein 7.4 g/dL (6.4-8.9); eGFR CKD-EPI 101.1 (>60)
[2022-03-23] MEDS: Iron Sucrose 200 MG in NS 0.9% 100 ml IVPB SCH (10:14)
[2022-03-23] MEDS ORDERED: Propofol 10 MG/ML 20 ML BTL ONE (13:18)
[2022-03-23] MEDS ORDERED: Lidocaine 2% PF 5 ML VIAL ONE (13:18)
[2022-03-23] MEDS ORDERED: Ondansetron 4 mg VIAL 2 MG/ML 2 ml VIAL IV PRN (14:57)
[2022-03-23] MEDS ORDERED: Naloxone 0.4 mg VIAL 0.4 mg/ml 1 ml VIAL IV PRN (14:57)
[2022-03-23] MEDS: Thiamine 100 MG/ML 2 ml VIAL 100 MG in NS 0.9% 50 ML 50 ML IV SCH (17:56)
[2022-03-23 20:13] LABS: Hematocrit 24 % (42-52); Hemoglobin 7.2 g/dL (14.0-18.0)
[2022-03-24] MEDS: Pantoprazole VIAL 40 MG VIAL IV SCH ×2 (06:06→17:55)
[2022-03-24 07:08] LABS: ABS Basophils 0.1 10^3/ul (0-0.2); ABS Eosinophils 0.3 10^3/ul (0-0.6); ABS Lymphocytes 0.9 10^3/ul (1.0-4.8); ABS Monocytes 0.6 10^3/ul (0-0.8); ABS Neutrophils 3.3 10^3/ul (1.5-7.7); Eosinophil % 6.1 %; Hematocrit 25 % (42-52); Hemoglobin 7.5 g/dL (14.0-18.0); Lymphocyte % 18.1 %; Mean Corpuscular HGB Conc 30 g/dL (31-36); Mean Corpuscular Hemoglobin 20 pg (27-31); Mean Corpuscular Volume 66 fL (80-94); Mean Platelet Volume 7.3 fL (7.4-10.4); Platelet Count 301 10^3/uL (150-450); Red Blood Count 3.82 10^6 /uL (4.18-5.48); Red Cell Distribution Width 20 % (10-15); White Blood Count 5.2 10^3/uL (3.5-10.8)
[2022-03-24 07:44] LABS: Calcium 8.5 mg/dL (8.6-10.3); Potassium 4.3 mmol/L (3.5-5.0); eGFR CKD-EPI 102.3 (>60)
[2022-03-24] MEDS: Iron Sucrose 200 MG in NS 0.9% 100 ml IVPB SCH (09:35)
[2022-03-24] MEDS: Nicotine PATCH 21 MG/24 HR PATCH TRANSDERM SCH (09:35)
[2022-03-24 12:33] LABS: C Reactive Protein 4.96 mg/L (<8.01)
[2022-03-24] MEDS: Thiamine 100 MG/ML 2 ml VIAL 100 MG in NS 0.9% 50 ML 50 ML IV SCH (17:54)
[2022-03-25] MEDS: Pantoprazole VIAL 40 MG VIAL IV SCH (05:17)
[2022-03-25 07:18] VITALS: BP 131/80
[2022-03-25] MEDS: Iron Sucrose 200 MG in NS 0.9% 100 ml IVPB SCH (07:41)
[2022-03-25] MEDS: Nicotine PATCH 21 MG/24 HR PATCH TRANSDERM SCH (07:41)
== END 2022-03-25 11:00 | disposition home or self-care (01) ==
LOC: SUATTDRO → ED 10:35 → EDHOLD 10:35 → MED 20:24
PROVIDERS: ADMIT Internal Medicine; ATTEND Internal Medicine
PROC: O.GIEGD (2022-03-23 13:40)

== ENCOUNTER 2022-09-24 12:16 | Inpatient (IN) ==
[2022-09-24] MEDS ORDERED: Albuterol/Ipratropium NEB.SOL (2.5/0.5 MG) 3 ML NEB.SOLN ONE (12:44)
[2022-09-24] MEDS ORDERED: Albuterol/Ipratropium NEB.SOL (2.5/0.5 MG) 3 ML NEB.SOLN INH ONE ×2 (12:47→15:39)
[2022-09-24] MEDS ORDERED: NS 0.9% 1000 ml BAG 1,000 ML IV ONE (12:48)
[2022-09-24] MEDS ORDERED: Acetylcysteine INHALATION SOL 200 MG/ML NEB.SOLN 10 ML INH ONE (12:58)
[2022-09-24] MEDS ORDERED: Lorazepam PYXIS KEY PRN (12:59)
[2022-09-24] MEDS ORDERED: LORazepam 2 mg VIAL 1 ml IV PUSH ONE (12:59)
[2022-09-24 13:35] LABS: Hematocrit 35.5 % (38-53); Hemoglobin 11.5 g/dL (13.2-16.3); Mean Corpuscular Hemoglobin 25.6 pg (27-33); Mean Corpuscular Hgb Conc 32.5 g/dL (31-36); Mean Corpuscular Volume 78.7 fL (80-97); Mean Platelet Volume 7.4 fL (7.5-11.2); Platelet Count 262 10^3/uL (150-450); Red Cell Distribution Width 19.6 % (12-17)
[2022-09-24] MEDS ORDERED: Azithromycin 500 mg/250 ml NS 500 MG/250 ML BAG IVPB ONE (13:39)
[2022-09-24] MEDS ORDERED: Nicotine PATCH 14 MG/24 HR PATCH TRANSDERM ONE (13:40)
[2022-09-24 13:57] LABS: Albumin 4.1 g/dL (3.2-5.2); Albumin/Globulin Ratio 0.9 (1-3); C Reactive Protein 249.21 mg/L (<8.01); Calcium 9.9 mg/dL (8.6-10.3); Creatinine, Serum 0.6 mg/dL (0.67-1.17); Globulin 4.7 g/dL (2-4); Magnesium 1.9 mg/dL (1.9-2.7); Phosphorus 2.7 mg/dL (2.5-5.0); Potassium 4.1 mmol/L (3.5-5.0); Total Bilirubin 0.4 mg/dL (0.2-1.0); Total Protein 8.8 g/dL (6.4-8.9); eGFR CKD-EPI 109.8 (>60)
[2022-09-24 14:39] LABS: ABS Basophils 0.1 10^3/uL (0.0-0.1); ABS Lymphocytes 0.6 10^3/uL (1.0-4.8); ABS Monocytes 1.4 10^3/uL (0.0-1.1); ABS Neutrophils 17.9 10^3/uL (1.5-7.6); Eosinophil % 0.1 %; Lymphocyte % 2.9 %
[2022-09-24 14:55] LABS: Urine Appearance Clear; Urine Bilirubin Negative (Negative); Urine Blood Negative (Negative); Urine Color Yellow; Urine Glucose Negative (Negative); Urine Ketones Negative (Negative); Urine Nitrite Negative (Negative); Urine Protein 2+(100 mg/dL) (Negative); Urine Urobilinogen Negative (Negative)
[2022-09-24 15:05] LABS: Urine Bacteria Absent (Absent); Urine Red Blood Cell Absent (Absent); Urine White Blood Cell Trace(0-5/hpf) (Absent)
[2022-09-24 15:16] LABS: High Sensitivity Troponin 1 Hr 21 pg/mL (<20)
[2022-09-24] MEDS ORDERED: methylPREDNISolone SOD SUCC 125 mg 2 ML VIAL IV ONE (15:39)
[2022-09-24] MEDS ORDERED: Albuterol/Ipratropium NEB.SOL (2.5/0.5 MG) 3 ML NEB.SOLN INH PRN (15:57)
[2022-09-24] MEDS ORDERED: DOXYcycline 100 MG in NS 0.9% 250 ml 250 ML IVPB SCH (16:00)
[2022-09-24] MEDS ORDERED: HYDROcodone/ACETAMIN 5/325 mg TAB PO PRN (16:01)
[2022-09-24] MEDS: Enoxaparin 40 MG/0.4 ML SYR SUBCUT SCH (16:26)
[2022-09-24 17:49] LABS: PCO2 Arterial 45 mmHg (35-45); PO2 Arterial 68 mmHg (80-100)
[2022-09-24] MEDS: Mometasone/Formoter 100/5 MDI INH SCH (19:53)
[2022-09-24] MEDS: DOXYcycline 100 MG in NS 0.9% 250 ml 250 ML IVPB SCH (21:20)
[2022-09-24] MEDS: methylPREDNISolone SOD SUCC 40 mg/ml 1 ml VIAL IV SCH (21:25)
[2022-09-24] MEDS ORDERED: LORazepam 2 mg VIAL 1 ml IV PUSH SCH (22:00)
[2022-09-25] MEDS: methylPREDNISolone SOD SUCC 40 mg/ml 1 ml VIAL IV SCH ×3 (05:55→22:07)
[2022-09-25] MEDS: Mometasone/Formoter 100/5 MDI INH SCH ×2 (07:16→19:03)
[2022-09-25 07:30] LABS: ABS Lymphocytes 0.5 10^3/uL (1.0-4.8); ABS Monocytes 0.6 10^3/uL (0.0-1.1); ABS Neutrophils 14.2 10^3/uL (1.5-7.6); ABS Nucleated RBC 0.03 10^3/ul; Hematocrit 36.4 % (38-53); Hemoglobin 11.8 g/dL (13.2-16.3); Mean Corpuscular Hgb Conc 32.3 g/dL (31-36); Mean Corpuscular Volume 80.4 fL (80-97); Mean Platelet Volume 7.5 fL (7.5-11.2); Nucleated Red Blood Cells % 0.2 /100 WBC (0.0-0.4); Platelet Count 326 10^3/uL (150-450); Red Blood Count 4.54 10^6/uL (4.06-5.63); Red Cell Distribution Width 20.6 % (12-17); White Blood Count 15.3 10^3/uL (3.6-10.2)
[2022-09-25 07:31] LABS: Calcium 9.5 mg/dL (8.6-10.3); Creatinine, Serum 0.64 mg/dL (0.67-1.17); Magnesium 2.1 mg/dL (1.9-2.7); Potassium 4.6 mmol/L (3.5-5.0); eGFR CKD-EPI 107.7 (>60)
[2022-09-25] MEDS: Nicotine PATCH 21 MG/24 HR PATCH TRANSDERM SCH (10:15)
[2022-09-25] MEDS: DOXYcycline 100 MG in NS 0.9% 250 ml 250 ML IVPB SCH ×2 (10:15→20:32)
[2022-09-25] MEDS: Multivitamins/Minerals TAB PO SCH (10:17)
[2022-09-25] MEDS: Enoxaparin 40 MG/0.4 ML SYR SUBCUT SCH (14:44)
[2022-09-26] MEDS: methylPREDNISolone SOD SUCC 40 mg/ml 1 ml VIAL IV SCH ×2 (05:17→17:16)
[2022-09-26 06:46] LABS: ABS Lymphocytes 0.6 10^3/uL (1.0-4.8); ABS Neutrophils 17.5 10^3/uL (1.5-7.6); ABS Nucleated RBC 0.01 10^3/ul; Hematocrit 36.8 % (38-53); Lymphocyte % 3.2 %; Mean Corpuscular Hgb Conc 32.7 g/dL (31-36); Mean Corpuscular Volume 79.6 fL (80-97); Mean Platelet Volume 7.3 fL (7.5-11.2); Platelet Count 370 10^3/uL (150-450); Red Blood Count 4.63 10^6/uL (4.06-5.63); Red Cell Distribution Width 19.7 % (12-17); White Blood Count 19.1 10^3/uL (3.6-10.2)
[2022-09-26] MEDS: Nicotine PATCH 21 MG/24 HR PATCH TRANSDERM SCH (07:06)
[2022-09-26 07:08] LABS: Albumin/Globulin Ratio 0.9 (1-3); Calcium 9.8 mg/dL (8.6-10.3); Creatinine, Serum 0.55 mg/dL (0.67-1.17); Globulin 4.6 g/dL (2-4); Potassium 4.4 mmol/L (3.5-5.0); Total Bilirubin 0.2 mg/dL (0.2-1.0); Total Protein 8.6 g/dL (6.4-8.9); eGFR CKD-EPI 112.8 (>60)
[2022-09-26] MEDS: Mometasone/Formoter 100/5 MDI INH SCH ×2 (07:10→19:30)
[2022-09-26] MEDS: Multivitamins/Minerals TAB PO SCH (08:50)
[2022-09-26] MEDS: DOXYcycline 100 MG in NS 0.9% 250 ml 250 ML IVPB SCH ×2 (08:51→20:12)
[2022-09-26] MEDS ORDERED: IRON-VITAMIN C 65/125(NF) (FERRONYL IRON) PO SCH (09:00)
[2022-09-26] MEDS ORDERED: Saline NASAL SPRAY 0.65% BTL BOTH NARES PRN (14:12)
[2022-09-26] MEDS: methylPREDNISolone SOD SUCC 125 mg 2 ML VIAL IV SCH (16:05)
[2022-09-26] MEDS: Enoxaparin 40 MG/0.4 ML SYR SUBCUT SCH (16:07)
[2022-09-27] MEDS: methylPREDNISolone SOD SUCC 125 mg 2 ML VIAL IV SCH ×2 (00:21→07:35)
[2022-09-27 06:52] LABS: Hematocrit 36.7 % (38-53); Hemoglobin 11.9 g/dL (13.2-16.3); Mean Corpuscular Hemoglobin 26.1 pg (27-33); Mean Corpuscular Hgb Conc 32.5 g/dL (31-36); Mean Corpuscular Volume 80.4 fL (80-97); Mean Platelet Volume 7.4 fL (7.5-11.2); Platelet Count 386 10^3/uL (150-450); Red Blood Count 4.57 10^6/uL (4.06-5.63); White Blood Count 18.4 10^3/uL (3.6-10.2)
[2022-09-27 06:58] LABS: ABS Monocytes 1.7 10^3/uL (0.0-1.1); ABS Neutrophils 15.7 10^3/uL (1.5-7.6); ABS Nucleated RBC 0.01 10^3/ul; Lymphocyte % 5.6 %
[2022-09-27 07:02] LABS: Albumin 3.7 g/dL (3.2-5.2); Calcium 9.3 mg/dL (8.6-10.3); Potassium 4.3 mmol/L (3.5-5.0); Total Bilirubin 0.2 mg/dL (0.2-1.0)
[2022-09-27] MEDS: Nicotine PATCH 21 MG/24 HR PATCH TRANSDERM SCH (07:05)
[2022-09-27 07:08] LABS: Albumin/Globulin Ratio 0.9 (1-3); Creatinine, Serum 0.61 mg/dL (0.67-1.17); Globulin 4.3 g/dL (2-4); eGFR CKD-EPI 109.3 (>60)
[2022-09-27] MEDS: Mometasone/Formoter 100/5 MDI INH SCH (07:16)
[2022-09-27] MEDS: DOXYcycline 100 MG in NS 0.9% 250 ml 250 ML IVPB SCH (07:32)
[2022-09-27] MEDS: Multivitamins/Minerals TAB PO SCH (07:36)
[2022-09-27 12:43] VITALS: BP 162/87
== END 2022-09-27 14:54 | disposition home or self-care (01) | DRG 140 ==
LOC: ED 12:16 → EDHOLD 12:16 → MEDTELE 16:51 → SUATTDRO 09-26 09:10
PROVIDERS: ADMIT Hospitalist; ATTEND Internal Medicine